=== PATIENT | female | born 1995 | race Caucasian/White ===

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

== ENCOUNTER 2022-01-02 19:11 | Inpatient (IN) | payer SELFPAY ==
[~2022-01-02] VITALS: Ht 142.2 cm; Wt 75.9 kg
[2022-01-03] VITALS (25 sets, daily range): BP systolic 94–142; BP diastolic 50–97; PULSE 75–111; TEMP 97.5–98.6
--- NOTE | 2022-01-03 06:30 | NUR ---
PT ON UNIT AMBULATORY TO LR5. PT CHANGED INTO CLEAN GOWN. FHR MONITOR/TOCO APPLIED. VITAL SIGNS WNL. PT DENIES VAGINAL BLEEDING, LEAKING OF FLUID, DECREASED MOVEMENT OR REGULAR CONTRACTIONS. PT ORIENTED TO ROOM. PLAN OF CARE DISCUSSED. PT VERBALIZES UNDERSTANDING. ASSESSMENTS DONE. CONSENTS SIGNED 0740 IV STARTED IN RIGHT HAND. NO REDNESS/DRAINAGE/EDEMA NOTED. 0800 PITOCIN STARTED PER PROTOCOL. CALL LIGHT WITHIN REACH.
[2022-01-03 08:06] LABS: BASO % 0.1 % (0.0-2.0); EOS # 0.1 K/mm3 (0.0-0.7); EOS % 0.5 % (0.0-4.0); GRAN # 6.3 K/mm3 (1.4-6.5); HEMOGLOBIN 11.7 g/dl (12.5-16.0); LYMPH # 2.6 K/mm3 (1.2-3.4); LYMPH % 27.1 % (20.0-51.0); MEAN CELL VOLUME 81 fl (80.0-100.0); MEAN CORPUSCULAR HEMOGLOBIN 26 pg (27-31); MEAN CORPUSCULAR HGB CONC 32 g/dl (33.0-37.0); MEAN PLATELET VOLUME 11.7 fl (7.4-10.4); MONO # 0.7 K/mm3 (0.1-0.6); MONO % 6.8 % (1.7-9.3); PLATELET COUNT 172 K/mm3 (130-400); RED BLOOD COUNT 4.56 M/mm3 (4.10-5.30)
[2022-01-03 08:11] LABS: HEMATOCRIT 36.8 % (37.0-47.0)
--- NOTE | 2022-01-03 08:15 | NUR ---
DR DOMINGUEZ DISCUSSING PLAN OF CARE WITH PATIENT. AROM @ [address] DOMINGUEZ /. CLEAR FLUID NOTED.
--- NOTE | 2022-01-03 09:20 | NUR ---
0910 PT SITTING UP FOR EPIDURAL. THIS RN AT BEDSIDE 0915 SINGLE SHOT GIVEN. PT TOLERATED PROCEDURE WELL. 0920 PT LAID BACK AFTER EPIDURAL SEMI FOWLERS. PLAN OF CARE DISCUSSED. CALL LIGHT WITHIN REACH.
--- NOTE | 2022-01-03 09:32 | NUR ---
[id number] MATERNAL HEART RATE TRACING. THIS RN ADJUSTING FHR MONITOR.
--- NOTE | 2022-01-03 10:15 | NUR ---
MTZ CATHER PLACED @ THIS TIME IN STERILE FASHION, FOLLOWED BY SVE. /-2.
--- NOTE | 2022-01-03 11:00 | NUR ---
1050 PT VOMITTING, MATERNAL HEART RATE TRACING.
--- NOTE | 2022-01-03 11:50 | NUR ---
[address] DOMINGUEZ /+1. 1123 THIS RN AT BEDSIDE, COACHING PT THROUGH PUSHING WITH CONTRACTIONS. 1138 DR DOMINGUEZ ASSESSING PUSHING. +2 STATION. NURSERY CALLED FOR DELIVERY. CHARGE NURSE CALLED FOR DELIVERY. 1141 SPONTANEOUS VAGINAL DELIVERY OF VIABLE FEMALE INFANT. INFANT BULB SUCTIONED AND STIMULATED. INFANT LETS OUT STRONG CRY. PLACED ON MOTHERS ABDOMEN. CORD CLAMPED BY DR DOMINGUEZ AND CUT BY FOB OF BABY. TO MOTHER'S CHEST SKIN TO SKIN. S. TECH TAKES OVER CARE OF INFANT. CORD BLOOD DRAWN AND COLLECTED FOR LAB. 1146 SPONTANEOUS DELIVERY OF PLACENTA. PITOCIN BOLUS STARTED PER PROTOCOL. NO LACERATIONS NOTED BY DR DOMINGUEZ. BED PUT BACK TOGETHER. PT REPOSITIONED. PAD PLACED.FUNDAL MASSAGE DONE. SCA NT AMT OF BLEEDING NOTED. PERICARE DONE. CALL LIGHT WITHIN REACH.
--- NOTE | 2022-01-03 12:35 | NUR ---
AT THIS TIME DR DOMINGUEZ NOTIFIED THAT PT IS HAVING MODERATE AMT OF BLEEDING. DR DOMINGUEZ ORDERS THE PT TO BE STRAIGHT CATHED AND BE CALLED IF BLEEDING CONTINUES AT THIS RATE.
--- NOTE | 2022-01-03 15:00 | NUR ---
PT SITTING UP ON SIDE OF BED. EPIDURAL CATHETER REMOVED. INTACT. PERICAR DONE. CLEAN PAD AND UNDERWEAR PLACED. CLEAN GOWN ON. PT TRANSFERRED TO WHEELCHAIR AND WHEELED TO 216 BY THIS RN. REPORT GIVEN TO Celine FLORES
[2022-01-04 00:30] VITALS: BP 119/76; PULSE 61; TEMP 97.9
[2022-01-04 03:00] VITALS: BP 121/71; PULSE 73; TEMP 97.5
[2022-01-04 08:00] VITALS: BP 113/71; PULSE 87; TEMP 97.9
[2022-01-04] MEDS ORDERED: IBU800 M1 PO (08:11)
--- NOTE | 2022-01-04 09:38 | NUR ---
Initial visit; Parents thanked [employer] Operator for offering congratulations and Blessings for the of their daughter. Light [employer] Operator thanked family for choosing [facility].
--- NOTE | 2022-01-04 14:00 | NUR ---
Discharge instructions and follow up care reviewed with pt. Pt verbalized an understanding, agreed with the plan and states no questions or concerns at this time.
== END 2022-01-04 14:35 | disposition home or self-care (01) | DRG 807 ==
LOC: LDR 19:11 → OB 01-03 06:23 → LDR 01-03 09:38 → OB 01-03 15:17
PROVIDERS: ADMIT Obstetrics & Gynecology
PROC: 10E0XZZ Delivery of Products of Conception, External Approach (ICD-10-PCS; principal; 2022-01-03)
PROC: 10907ZC Drainage of Amniotic Fluid, Therapeutic from Products of Conception, Via Natural or Artificial Opening (ICD-10-PCS; 2022-01-03)
PROC: 3E033VJ Introduction of Other Hormone into Peripheral Vein, Percutaneous Approach (ICD-10-PCS; 2022-01-03)
DX: O24.420 Gestational diabetes mellitus in childbirth, diet controlled (principal); Z37.0 Single live birth; Z3A.39 39 weeks gestation of pregnancy; O99.214 Obesity complicating childbirth; E66.9 Obesity, unspecified
CPT/HCPCS: J2405; J2590; J2795; J7120